=== PATIENT | female | born 1990 | race African-American/Black ===

== ENCOUNTER 2016-10-29 10:46 | Emergency (ER) | payer OTHER ==
[~2016-10-29 10:46] MED LIST: HYDR-971 PO; NAPR500T PO; VENTOLIN HFA18 GM IH
[2016-10-29 11:51] VITALS: BP 127/67
[2016-10-29] MEDS ORDERED: HYDR25TA PO (12:29)
[2016-10-29] MEDS ORDERED: METH4TAB2 PO (12:29)
--- NOTE | 2016-10-29 12:30 | PHYS DOC ---
Past Medical History Past Medical History: No Pertinent History Past Surgical History: Appendectomy, Tubal ligation Alcohol Use: None Drug Use: None Adult General Chief Complaint Chief Complaint: ALLERGIC REACTION HPI HPI Patient is a 26 year old female who presents with complaint of itching. Patient states her symptoms started 2 days ago and have been constant ever since. Patient states that she was recently started on a topical medication for athlete's foot by her primary physician, Dr. Barreintos. Patient states that she does not know the name of the medication, however after starting it, she started noticing a raised bumps all over her skin and itching. Patient states that this has now gone away despite treatment with Benadryl. Patient states she took 1 dose of Benadryl Saturday for treatment. The patient currently denies any shortness of breath, fever, or abdominal pain associated with her symptoms. The patient contacted her primary physician and was told that there were no available appointments this week. Patient decided come to the emergency department for evaluation. Patient states that the rash that she has noticed appears to be raised bumps all over her skin. Review of Systems Review of Systems Constitutional: Denies fever or chills [] Eyes: Denies change in visual acuity, redness, or eye pain [] HENT: Denies nasal congestion or sore throat [] Respiratory: Denies cough or shortness of breath [] Cardiovascular: Denies chest pain or edema [] GI: Denies abdominal pain, nausea, vomiting, bloody stools or diarrhea [] : Denies dysuria or hematuria [] Musculoskeletal: Denies back pain or joint pain [] Integument: Pruritus, skin rash [] Neurologic: Denies headache, focal weakness or sensory changes [] Allergies Allergies Allergies Coded Allergies Type Severity Reaction Last Updated Verified gentamicin Allergy Intermediate Itching, redness, burning 12/23/14 Yes Physical Exam Physical Exam Constitutional: Well developed, well nourished, afebrile, appears in mild discomfort. [] HENT: Normocephalic, atraumatic, bilateral external ears normal, oropharynx moist, no oral exudates, nose normal. [] Eyes: PERRLA, EOMI, conjunctiva normal, no discharge. [] Neck: Normal range of motion, no tenderness, supple, no stridor. [] Cardiovascular:Heart rate regular rhythm, no murmur [] Lungs & Thorax: Bilateral breath sounds clear to auscultation [] Abdomen: Bowel sounds normal, soft, no tenderness, no masses, no pulsatile masses. [] Skin: Warm, dry, diffuse piloerection, superficially excoriated skin along lateral aspect of bilateral upper arms. [] Back: No tenderness, no CVA tenderness. [] Extremities: No tenderness, no cyanosis, no clubbing, ROM intact, no edema. [] Neurologic: Alert and oriented X 3, normal motor function, normal sensory function, no focal deficits noted. [] Current Patient Data Vital Signs Vital Signs Date Time Temp Pulse Resp B/P Pulse Ox O2 Delivery O2 Flow Rate FiO2 10/29/16 11:51 98.6 83 20 100 Room Air 98.6 EKG EKG Not performed [] Radiology/Procedures Radiology/Procedures Not performed [] Course & Med Decision Making Course & Med Decision Making Pertinent Labs and Imaging studies reviewed. (See chart for details) The patient's rash appears to be pilomotor response of the hair follicles of the skin. The patient does not have any visible discrete urticarial lesions. The cause of her symptoms is unclear at this time. The patient and I discussed possible stressors which she denied at this time. We will treat the patient for possible histamine reaction contributing to her symptoms. I recommended follow- up in 3 days with primary doctor. Patient will continue on Atarax and Medrol Dosepak for outpatient treatment. Patient was started on Atarax and prednisone in the emergency department. Advised return emergency department for any worsening symptoms. Patient voiced understanding and in agreement with treatment plan. Dragon Disclaimer Dragon Disclaimer This electronic medical record was generated, in whole or in part, using a voice recognition dictation system. Departure Departure Impression: Primary Impression: Pruritus Disposition: 01 HOME, SELF-CARE Condition: STABLE Referrals: YANET BARRIENTOS MD (PCP) Patient Instructions: Itching-Brief Additional Instructions: Follow-up with Dr. Barrientos in 3-5 days. Return to the emergency department for any worsening symptoms. Scripts Methylprednisolone (Medrol)4 Mg Tab.ds.pk1 Pkg PO UD #1 PKG Prov:FLORENTINO JAMES MD 10/29/16 Hydroxyzine Hcl 25 Mg Tablet1 Tab PO PRN Q6HRS PRN ITCHING #30 TAB Prov:FLORENTINO JAMES MD 10/29/16 FLORENTINO JAMES MD Oct 29, 2016 12:30
[2016-10-29] MEDS: HYDROXYZINE PAMOATE 25 MG CAPSULE PO STA (12:40)
[2016-10-29] MEDS: PREDNISONE 20 MG TABLET PO ONE (12:41)
== END 2016-10-29 12:43 | disposition home or self-care (01) ==
LOC: ER 10:46
DX: L29.9 Pruritus, unspecified (principal); B35.3 Tinea pedis; Z90.49 Acquired absence of other specified parts of digestive tract; Z98.51 Tubal ligation status; Z88.1 Allergy status to other antibiotic agents
CPT/HCPCS: 99283; J7512; Q0177

== ENCOUNTER 2018-04-16 00:05 | Emergency (ER) | payer OTHER ==
[~2018-04-16] VITALS: Ht 157.5 cm; Wt 79.4 kg
[~2018-04-16 00:05] MED LIST changes: +HYDR25TA PO; +METH4TAB2 PO; +NAPR-683 PO; -NAPR500T PO
[2018-04-16 00:58] LABS: BILIRUBIN,URINE NEGATIVE (NEG); CLARITY,URINE CLEAR; COLOR,URINE YELLOW; NITRITE,URINE NEGATIVE (NEG); PROTEIN,URINE NEGATIVE (NEG-TRACE)
[2018-04-16] MEDS ORDERED: diphenhydrAMINE 50 MG/ML VIAL IVP ONE (01:00)
[2018-04-16] MEDS ORDERED: IV NORMAL SALINE 1000ML BAG 1,000 ML IV ONE (01:00)
[2018-04-16] MEDS ORDERED: PROCHLORPERAZINE 10 MG/2 ML VIAL. IV ONE (01:00)
[2018-04-16 01:02] LABS: BACTERIA,URINE FEW /HPF (0-FEW); RBC,URINE 0 /HPF (0-2); SQUAMOUS EPITHELIAL CELL,UR FEW /LPF
--- NOTE | 2018-04-16 01:29 | PHYS DOC ---
Past Medical History Past Medical History: No Pertinent History Past Surgical History: Appendectomy, Tubal ligation Alcohol Use: None Drug Use: None Adult General Chief Complaint Chief Complaint: HEADACHE [facility] HPI Patient is a 27 year old female presents with headache onset 6 days ago gradually worsening worse now than when it started described as throbbing bilateral holiness area associated with some sinus congestion some chills no urinary symptoms. She says the light hurts her eyes she says that the taking of the clock is very annoying to her making her headache worse. She has had migraines in the past but none recently. She is never had a headache last this long she took Motrin with minimal relief. Review of Systems Review of Systems Constitutional: Denies fever or chills [] Eyes: Denies change in visual acuity, redness, or eye pain [] Cardiovascular: No additional information not addressed in HPI [] GI: Vomiting Musculoskeletal: Denies back pain or joint pain [] Integument: Denies rash or skin lesions [] Neurologic: Deniesocal weakness or sensory changes [] Endocrine: Denies polyuria or polydipsia [] All other systems were reviewed and found to be within normal limits, except as documented in this note. Current Medications Current Medications Current Medications Medications (Trade) Dose Ordered Sig/Arin Start Time Stop Time Status Last Admin Dose Admin Diphenhydramine HCl (Benadryl) 25 mg 1X ONCE 04/16/18 01:00 04/16/18 01:01 DC 04/16/18 01:22 25 MG Prochlorperazine Edisylate (Compazine) 10 mg 1X ONCE 04/16/18 01:00 04/16/18 01:01 DC 04/16/18 01:20 10 MG Sodium Chloride 1,000 ml @ 1,000 mls/hr 1X ONCE 04/16/18 01:00 04/16/18 01:59 DC 04/16/18 01:20 1,000 MLS/HR Allergies Allergies Allergies Coded Allergies Type Severity Reaction Last Updated Verified gentamicin Allergy Intermediate Itching, redness, burning 12/23/14 Yes Physical Exam Physical Exam Constitutional: Well developed, well nourished, no acute distress, non-toxic appearance. [] HENT: Normocephalic, atraumatic, bilateral external ears normal, oropharynx moist, no oral exudates, nose normal. [] Eyes: PERRLA, EOMI, conjunctiva normal, no discharge. [] Neck: Normal range of motion, no tenderness, supple, no stridor. [] Normal respiratory effort no increased work of breathing. Abdomen: Bowel sounds normal, soft, no tenderness, no masses, no pulsatile masses. [] Skin: Warm, dry, no erythema, no rash. [] Extremities: No tenderness, no cyanosis, no clubbing, ROM intact, no edema. [] Neurologic: Alert and oriented X 3, normal motor function, normal sensory function, no focal deficits noted. []Cranial nerves intact Psychologic: Affect normal, judgement normal, mood normal. [] Current Patient Data Vital Signs Vital Signs Date Time Temp Pulse Resp B/P (MAP) Pulse Ox O2 Delivery O2 Flow Rate FiO2 04/16/18 00:41 100.0 58 18 118/61 (80) 99 Room Air 100.0 Lab Values Laboratory Tests Test 04/16/18 00:18 04/16/18 00:52 Urine Collection Type Unknown Urine Color Yellow Urine Clarity Clear Urine pH 6.0 Urine Specific Spencer 1.010 Urine Protein Negative mg/dL (NEG-TRACE) Urine Glucose (UA) Negative mg/dL (NEG) Urine Ketones (Stick) Negative mg/dL (NEG) Urine Blood Negative (NEG) Urine Nitrite Negative (NEG) Urine Bilirubin Negative (NEG) Urine Urobilinogen Dipstick 1.0 mg/dL (0.2 mg/dL) Urine Leukocyte Esterase Negative (NEG) Urine RBC 0 /HPF (0-2) Urine WBC 1-4 /HPF (0-4) Urine Squamous Epithelial Cells Few /LPF Urine Bacteria Few /HPF (0-FEW) Urine Mucus Slight /LPF POC Urine HCG, Qualitative Hcg negative (Negative) EKG EKG [] Radiology/Procedures Radiology/Procedures [] Course & Med Decision Making Course & Med Decision Making Pertinent Labs and Imaging studies reviewed. (See chart for details) []Suspect migraine 27-year-old female history of same but none recently. She has photophobia she has sound sensitivity she did have low-grade fever but she has sinus congestion she does have possible borderline urinalysis and so given the low-grade fever we will treat for that as well. Patient is feeling better in the emergency room after usual treatment as above. She remains neurologically intact she'll be discharged in stable condition. Her neck is supple she is very well-appearing the symptoms going on for 6 days she has no change in mental status I do not think that she has encephalitis or meningitis. Dragon Disclaimer Dragon Disclaimer This electronic medical record was generated, in whole or in part, using a voice recognition dictation system. Departure Departure Impression: Primary Impression: Headache Disposition: HOME, SELF-CARE Condition: IMPROVED Referrals: YANET MCDONOUGH MD (PCP) Scripts Cephalexin (CEPHALEXIN) 500 Mg Capsule 1 CAP PO QID, #28 CAP Prov: MIN PAN MD 04/16/18 MIN PAN MD Apr 16, 2018 01:29
[2018-04-16] MEDS ORDERED: CEPH500C PO (02:07)
[2018-04-16 02:30] VITALS: BP 107/58
== END 2018-04-16 02:37 | disposition home or self-care (01) ==
LOC: ER 00:05
DX: R51 Headache (principal); R11.10 Vomiting, unspecified; Z90.89 Acquired absence of other organs; Z98.51 Tubal ligation status; Z88.1 Allergy status to other antibiotic agents
CPT/HCPCS: 81001; 81025; 96361; 96374; 96375; 99284; J0780; J1200; J7030

== ENCOUNTER 2019-10-22 09:25 | Emergency (ER) | payer OTHER ==
[~2019-10-22] VITALS: Ht 157.5 cm; Wt 77.2 kg
[~2019-10-22 09:25] MED LIST changes: +CEPH500C PO; +DICL50TA4 PO; +HYDR-3164 PO; -HYDR-971 PO
[2019-10-22 09:34] VITALS: BP 128/60
[2019-10-22 10:08] LABS: INFLUENZA A PATIENT NEGATIVE (NEGATIVE); INFLUENZA B PATIENT POSITIVE (NEGATIVE)
[2019-10-22] MEDS ORDERED: OSEL75CA PO (10:43)
[2019-10-22] MEDS ORDERED: AZIT250T PO (10:43)
--- NOTE | 2019-10-22 10:44 | PHYS DOC ---
Past Medical History Past Medical History: Asthma Past Surgical History: Appendectomy, Tubal ligation Smoking Status: Never Smoker Alcohol Use: None Drug Use: None Adult General Chief Complaint Chief Complaint: COUGH HPI HPI Patient is a 29 year old female who presents with complaint of cough, congestion, fever and chills as well as body aches. Patient states symptoms have been present for 3 days but have gotten a lot worse over the last 24 hours. Patient denies any vomiting or diarrhea.[] Review of Systems Review of Systems Constitutional: Positive fever and chills [] Respiratory: Complains of cough without shortness of breath [] Cardiovascular: No additional information not addressed in HPI [] Integument: Denies rash or skin lesions [] Neurologic: Denies headache, focal weakness or sensory changes [] Allergies Allergies Allergies Coded Allergies Type Severity Reaction Last Updated Verified gentamicin Allergy Intermediate Itching, redness, burning 12/23/14 Yes Physical Exam Physical Exam Constitutional: Well developed, well nourished, no acute distress, non-toxic appearance. [] HENT: Normocephalic, atraumatic, bilateral external ears normal, pharyngeal erythema without exudates is noted. [] Neck: Normal range of motion, no tenderness, supple, no stridor. [] Cardiovascular:Heart rate regular rhythm, no murmur [] Lungs & Thorax: Bilateral breath sounds clear to auscultation [] Extremities: No tenderness, no cyanosis, no clubbing, ROM intact, no edema. [] Current Patient Data Vital Signs Vital Signs Date Time Temp Pulse Resp B/P (MAP) Pulse Ox O2 Delivery O2 Flow Rate FiO2 10/22/19 09:34 99.1 81 17 128/60 (82) 99 Room Air 99.1 Lab Values Laboratory Tests Test 10/22/19 09:42 Influenza Type A Antigen Negative (NEGATIVE) Influenza Type B Antigen Positive (NEGATIVE) EKG EKG [] Radiology/Procedures Radiology/Procedures [] Course & Med Decision Making Course & Med Decision Making Pertinent Labs and Imaging studies reviewed. (See chart for details) [] Dragon Disclaimer Dragon Disclaimer This electronic medical record was generated, in whole or in part, using a voice recognition dictation system. Departure Departure Impression: Primary Impression: Influenza B Additional Impression: Bronchitis Disposition: 01 HOME, SELF-CARE Condition: STABLE Referrals: YANET MCDONOUGH MD (PCP) Patient Instructions: Acute Bronchitis, Influenza, Adult Scripts Oseltamivir Phosphate (TAMIFLU) 75 Mg Capsule 1 CAP PO BID, #10 CAP Prov: MÓNICA SHIRLEY Jr. DO 10/22/19 Azithromycin (ZITHROMAX) 250 Mg Tablet 1 PKG PO UD, #6 TAB Prov: MÓNICA SHIRLEY Jr. DO 10/22/19 Problem Qualifiers MÓNICA SHIRLEY Jr. DO Oct 22, 2019 10:43
== END 2019-10-22 10:51 | disposition home or self-care (01) ==
LOC: ER 09:25
DX: J10.1 Influenza due to other identified influenza virus with other respiratory manifestations (principal); J45.909 Unspecified asthma, uncomplicated; Z88.1 Allergy status to other antibiotic agents
CPT/HCPCS: 87804; 99283

== ENCOUNTER 2020-08-27 12:56 | Emergency (ER) | payer OTHER ==
[~2020-08-27 12:56] MED LIST changes: +AZIT250T PO; +OSEL75CA PO
== END 2020-08-27 14:57 | disposition left against medical advice (07) ==
LOC: ER 12:56
DX: R10.2 Pelvic and perineal pain (principal); Z53.21 Procedure and treatment not carried out due to patient leaving prior to being seen by health care provider

== ENCOUNTER 2021-03-22 09:48 | Emergency (ER) | payer OTHER ==
[~2021-03-22] VITALS: Ht 157.5 cm; Wt 72.8 kg
[2021-03-22 10:08] VITALS: BP 125/64
[2021-03-22] MEDS ORDERED: IBUPROFEN 200 MG TABLET. PO ONE (11:00)
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
[2021-03-22] MEDS ORDERED: IBUP-1007 PO (12:20)
[2021-03-22] MEDS ORDERED: CYCL10TA2 PO (12:20)
== END 2021-03-22 12:46 | disposition home or self-care (01) ==
LOC: ER 09:48
DX: S16.1XXA Strain of muscle, fascia and tendon at neck level, initial encounter (principal); S39.012A Strain of muscle, fascia and tendon of lower back, initial encounter; S29.012A Strain of muscle and tendon of back wall of thorax, initial encounter; S40.012A Contusion of left shoulder, initial encounter; J45.909 Unspecified asthma, uncomplicated; Z98.51 Tubal ligation status; Z88.1 Allergy status to other antibiotic agents; V49.49XA Driver injured in collision with other motor vehicles in traffic accident, initial encounter; Y93.89 Activity, other specified; Y92.488 Other paved roadways as the place of occurrence of the external cause; Y99.8 Other external cause status
CPT/HCPCS: 72072; 72100; 72125; 73030; 81025; 99284-25

== ENCOUNTER 2021-08-08 16:35 | Emergency (ER) | payer OTHER ==
[~2021-08-08] VITALS: Ht 157.5 cm; Wt 78.3 kg
[~2021-08-08 16:35] MED LIST changes: +CYCL10TA19 PO; +IBUP-1007 PO
[2021-08-08 17:45] VITALS: BP 138/62
--- NOTE | 2021-08-08 17:56 | PHYS DOC ---
Past Medical History Past Medical History: Asthma Past Surgical History: Appendectomy, Tubal ligation Smoking Status: Never Smoker Alcohol Use: None Drug Use: None General Adult EDM: Chief Complaint: FLU SYMPTOM HPI: HPI: Patient is a 31-year-old female who presents to the emergency department for chills, fatigue, nausea, vomiting, cough, nasal drainage. She reports that symptoms started yesterday, her son is sick with same symptoms. She states that she received her Pfizer vaccine on July 10. She has a history of asthma. Patient is noted to have fever in the ER with a temp of 101.4, vital signs are stable, she is not tachycardic and not hypoxic. Review of Systems: Review of Systems: 14 body systems of the review of systems have been reviewed. See HPI for pertinent positive and negative responses, otherwise all other systems are negative, nonpertinent or noncontributory Heart Score: C/O Chest Pain: N/A Risk Factors: Risk Factors: DM, Current or recent (<one month) smoker, HTN, HLP, family history of CAD, obesity. Risk Scores: Score 0 - 3: 2.5% MACE over next 6 weeks - Discharge Home Score 4 - 6: 20.3% MACE over next 6 weeks - Admit for Clinical Observation Score 7 - 10: 72.7% MACE over next 6 weeks - Early Invasive Strategies Current Medications: Current Medications Medications (Trade) Dose Ordered Sig/[facility] Start Time Stop Time Status Last Admin Dose Admin Acetaminophen (Tylenol) 1,000 mg 1X ONCE 08/08/21 18:00 08/08/21 18:01 Ibuprofen (Motrin) 600 mg 1X ONCE 08/08/21 18:00 08/08/21 18:01 Allergies: Allergies: Allergies Coded Allergies Type Severity Reaction Last Updated Verified gentamicin Allergy Intermediate Itching, redness, burning 12/23/14 Yes Physical Exam: PE: Constitutional: Well developed, well nourished, no acute distress, non-toxic ap pearance. [] HENT: Normocephalic, atraumatic, bilateral external ears normal, oropharynx moist, no oral exudates, nose normal. [] Eyes: PERRL, EOMI, conjunctiva normal, no discharge. [] Neck: Normal range of motion, no stridor Cardiovascular:Heart rate regular rhythm, no murmur [] Lungs & Thorax: Bilateral breath sounds clear to auscultation [] Abdomen: Bowel sounds normal, soft, no tenderness, no masses, no pulsatile masses, patient not actively vomiting in the ER. [] Skin: Warm, dry, no erythema, no rash. [] Back: Normal range of motion Extremities: No tenderness, no cyanosis, no clubbing, ROM intact, no edema. [] Neurologic: Alert and oriented X 3, normal motor function, normal sensory function, no focal deficits noted. [] Psychologic: Affect normal, judgement normal, mood normal. [] Current Patient Data: Labs: Laboratory Tests Test 08/08/21 18:53 08/08/21 19:08 Bedside Urine HCG, Qualitative Hcg negative Influenza Type A Antigen Positive Influenza Type B Antigen Negative Current Medications Medications (Trade) Dose Ordered Sig/Arin Route PRN Reason Start Time Stop Time Status Last Admin Dose Admin Acetaminophen (Tylenol) 1,000 mg 1X ONCE PO 08/08/21 18:00 08/08/21 18:01 DC 08/08/21 19:01 Ibuprofen (Motrin) 600 mg 1X ONCE PO 08/08/21 18:00 08/08/21 18:01 DC 08/08/21 19:01 Ondansetron HCl (Zofran Odt) 4 mg 1X ONCE PO 08/08/21 19:00 08/08/21 19:01 DC 08/08/21 19:02 Ondansetron HCl (Zofran Odt) 4 mg STK-MED ONCE .ROUTE 08/08/21 18:52 08/08/21 18:53 DC EKG: EKG: [] Radiology/Procedures: Radiology/Procedures: []PROCEDURE: PORTABLE CHEST 1V Single view chest dated 08/08/2021 7:20 PM: COMPARISON: 01/16/2008 Clinical Indication: Cough and shortness of breath. Findings: Single upright portable exam of the chest was performed. Heart size and mediastinal contours are within normal limits. Lungs are clear. No consolidation or pleural effusion. No pneumothorax. IMPRESSION: No acute radiographic abnormality. Electronically signed by: Odell Staton MD (08/08/2021 7:20 PM) [facility] [place]ATED and SIGNED BY: ODELL STATON MD DATE: 08/08/21 [id number] Course & Med Decision Making: Course & Med Decision Making Pertinent Labs and Imaging studies reviewed. (See chart for details) [] Patient presents to the emergency department for multiple flu symptoms including chills, fatigue, nausea, vomiting, cough, nasal drainage. Patient is in no acute distress, she is febrile in the ER but remainder of patient's vital signs are stable. Patient will be tested for influenza, Covid and have a chest x-ray. She will be treated with Tylenol and ibuprofen. Patient's vital signs are stable and she is in no acute distress. Patient's rapid influenza test was positive for influenza B. She was tested for COVID-19 and will be notified of those results when they become available in approximately 2 days, advised to self isolate pending results. Chest x-ray showed no acute findings. Patient be discharged home with Tamiflu. Patient advised to take Tylenol and ibuprofen for her pain or fevers, increase her fluids and rest. I discussed with patient all findings and diagnostic testing as well as the need to follow-up with PCP for further evaluation and treatment or return to the ER if any new or worsening symptoms. Strict return precautions were also discussed at length. Patient voiced understanding and agreement with the plan. Patient is hemodynamically stable at the time of disposition. Dragon Disclaimer: Bettyvision Disclaimer: This electronic medical record was generated, in whole or in part, using a voice recognition dictation system. Departure Departure Impression: Primary Impression: Influenza A Disposition: 01 HOME / SELF CARE / HOMELESS Condition: GOOD Referrals: YANET MCDONOUGH MD (PCP) Patient Instructions: Influenza, Adult Additional Instructions: You were seen in the emergency department for multiple flu symptoms. Your rapid influenza test was positive for influenza A. You are also Covid tested in the emergency department and you will be notified of those results via telephone when they become available in approximately 2 days. Please self isolate until you receive these results. Your chest x-ray shows no acute findings. Make sure that you are resting and increasing your fluids.. You can take Tylenol and Motrin for his pain or fevers. You are being discharged home with a prescription for Tamiflu you can take this to shorten your length of symptoms. Please follow-up with your primary care provider tomorrow regarding your ER visit. Please return to the emergency department if he develops high fevers refractory to treatment, shortness of breath, lethargy, intractable nausea or vomiting, confusion or any new or worsening concerns. Scripts Oseltamivir Phosphate (TAMIFLU) 75 Mg Capsule 1 CAP PO BID for 5 Days, #10 CAP 0 Refills Prov: ROSALEE SWEENEY APRN 08/08/21 ROSALEE SWEENEY APRN Aug 08, 2021 17:56
[2021-08-08] MEDS ORDERED: IBUPROFEN 200 MG TABLET. PO ONE (18:00)
[2021-08-08] MEDS ORDERED: ACETAMINOPHEN 500 MG TABLET PO ONE (18:00)
[2021-08-08] MEDS ORDERED: ONDANSETRON ODT 4 MG TAB.RAPDIS. ONE (18:52)
[2021-08-08] MEDS ORDERED: ONDANSETRON ODT 4 MG TAB.RAPDIS. PO ONE (19:00)
--- NOTE | 2021-08-08 19:22 | RAD ---
Single view chest dated 08/08/2021 7:20 PM: COMPARISON: 01/16/2008 Clinical Indication: Cough and shortness of breath. Findings: Single upright portable exam of the chest was performed. Heart size and mediastinal contours are with in normal limits. Lungs are clear. No consolidation or pleural effusion. No pneumothorax. IMPRESSION: No acute radiographic abnormality. Electronically signed by: Odell Staton MD (08/08/2021 7:20 PM) BETHEL
[2021-08-08 19:44] LABS: INFLUENZA B PATIENT NEGATIVE (NEGATIVE)
[2021-08-08 19:49] LABS: INFLUENZA A PATIENT POSITIVE (NEGATIVE)
[2021-08-08] MEDS ORDERED: OSEL75CA PO (20:00)
--- NOTE | 2021-08-09 15:34 | NUR ---
IP: Informed pt of negative covid test. Pt verbalized understanding.
== END 2021-08-08 20:25 | disposition home or self-care (01) ==
LOC: ER 16:35
DX: J09.X2 Influenza due to identified novel influenza A virus with other respiratory manifestations (principal); Z20.822 Contact with and (suspected) exposure to COVID-19; J45.909 Unspecified asthma, uncomplicated; Z88.1 Allergy status to other antibiotic agents
CPT/HCPCS: 71045; 81025; 87804; 99284; U0003; U0005